=== PATIENT | male | born 1985 | race African-American/Black ===

== ENCOUNTER 2022-01-06 23:53 | Emergency (ER) | payer OTHER ==
[~2022-01-06] VITALS: Ht 165.1 cm; Wt 81.6 kg
[2022-01-07 00:45] LABS: PLATELET COUNT 324 K/uL (142-355)
[2022-01-07 00:52] LABS: POTASSIUM 3.7 mmol/L (3.6-5.2)
[2022-01-07 01:25] VITALS: BP 106/68; TEMP 98.6
== END 2022-01-07 01:25 | disposition home or self-care (01) ==
LOC: ED 23:53
PROVIDERS: Family Medicine
DX: N13.2 Hydronephrosis with renal and ureteral calculous obstruction (principal)
CPT/HCPCS: 36415; 80053; 85027; 96360; 96374; 99284; J1885